=== PATIENT | female | born 1985 | race Caucasian/White ===

== ENCOUNTER → 2016-08-22 | Outpatient (REF) | payer BC, MEDICAID ==
[~2016-08-22] MED LIST: COLA100C PO; FLUO40CA57 PO; IBUP600T26 PO; MONT10TA2 PO; OXYC1TAB23 PO; PANT40TA2 PO; PRENTAB9 PO; SING10TA32 PO
== END ==
LOC: M LAB REF 17:34
PROVIDERS: ATTEND Obstetrics & Gynecology
DX: Z34.83 Encounter for supervision of other normal pregnancy, third trimester (principal)

== ENCOUNTER 2016-08-23 13:30 | Inpatient (IN) | payer BC, MEDICAID ==
[~2016-08-23] VITALS: Ht 154.9 cm; Wt 95.0 kg
[2016-08-23 13:58] VITALS: BP 137/86
[2016-08-23] MEDS ORDERED: LR 1,000 ML IV SCH (14:04)
[2016-08-23] MEDS ORDERED: LACTATED RINGER'S 1000 ML IV STA (14:04)
[2016-08-23] MEDS ORDERED: miSOPROStol 50 MCG 1/2 TAB (S0191) SL ONE (14:15)
[2016-08-23 14:35] VITALS: BP 134/82
[2016-08-23 14:54] LABS: MEAN CORPUSCULAR HEMOGLOBIN 31.3 pg (27.0-33.0); MEAN CORPUSCULAR HGB CONC 35.4 g/dl (32.0-36.5); MEAN CORPUSCULAR VOLUME 88.6 fl (80.0-96.0); RED CELL DISTRIBUTION WIDTH 12.5 % (11.5-14.5); WHITE BLOOD COUNT 7.6 K/mm3 (4.0-10.0)
[2016-08-23 15:53] VITALS: BP 138/89
[2016-08-23] MEDS ORDERED: PRENTAB9 PO (16:05)
[2016-08-23] MEDS ORDERED: SING10TA32 PO (16:05)
[2016-08-23] MEDS ORDERED: FLUO40CA57 PO (16:05)
[2016-08-23] MEDS ORDERED: MONT10TA2 PO (16:05)
[2016-08-23] MEDS ORDERED: PANT40TA2 PO (16:05)
[2016-08-23 17:06] VITALS: BP 131/69
[2016-08-23 18:06] VITALS: BP 159/94
[2016-08-23 18:08] VITALS: BP 150/87
[2016-08-23] MEDS ORDERED: FENTANYL 2MCG/ML ROPIVACAINE 0.2% NACL 250 ML CADD As Ordered ONE (19:33)
[2016-08-23] MEDS ORDERED: TERBUTALINE SULFATE 1 MG/ML VIAL (J3105) As Ordered ONE (20:30)
[2016-08-23] MEDS ORDERED: ceFAZolin 2 GM/D5W 50 ML IV BAG (J0690) As Ordered ONE (21:27)
[2016-08-23] MEDS ORDERED: BICITRA 30ML SOLN UDC As Ordered ONE (21:27)
[2016-08-23] MEDS ORDERED: MIDAZOLAM INJ 2 MG/2 ML VIAL (J2250) As Ordered ONE (21:50)
[2016-08-23] MEDS ORDERED: dexameTHASONE 4 MG/ML 1ML VIAL (J1100) As Ordered ONE (21:50)
[2016-08-23] MEDS ORDERED: ONDANSETRON 4MG/2ML VIAL (J2405) As Ordered ONE ×2 (21:51→22:28)
[2016-08-23] MEDS ORDERED: OXYTOCIN INJ 10 UNITS/ML VIAL (J2590) As Ordered ONE (21:51)
[2016-08-23] MEDS ORDERED: MORPHINE PRES-FREE INJ 10 MG/10 ML VIAL (J2274) As Ordered ONE (21:53)
[2016-08-23] MEDS ORDERED: PHENYLephrine HCL 500 MCG/5 ML (100MCG/ML) SYRINGE (J2370) As Ordered ONE ×2 (21:59→22:24)
[2016-08-23 22:06] LABS: CORD GAS O2 SAT V 35.7 %
[2016-08-23 22:07] LABS: CORD GAS HCO3 V 15.7 MEQ/L; CORD GAS PH V 6.932 UNITS
[2016-08-23 22:08] LABS: CORD GAS ABE V -18.2
[2016-08-23 22:09] LABS: CORD GAS SBC V 10.4 MEQ/L
[2016-08-23] MEDS ORDERED: METOCLOPRAMIDE INJ 10MG/2ML VIAL (J2765) IV PRN (22:10)
[2016-08-23] MEDS ORDERED: NALOXONE INJ 0.4 MG/1 ML VIAL (J2310) IV PRN ×2 (22:10)
[2016-08-23] MEDS ORDERED: ONDANSETRON 4MG/2ML VIAL (J2405) IV PRN ×3 (22:10→23:30)
[2016-08-23] MEDS ORDERED: NALBUPHINE HCL 10 MG/ML AMP (J2300) IV PRN ×2 (22:10→23:15)
[2016-08-23 22:12] LABS: CORD GAS PCO2 A 106.8 mmHg; CORD GAS PH A 6.854 UNITS
[2016-08-23 22:13] LABS: CORD GAS ABE A -17.9; CORD GAS HCO3 A 18.4 MEQ/L; CORD GAS O2 SAT A 19.5 %; CORD GAS PO2 A 17.8 mmHg; CORD GAS SBC A 10.2 MEQ/L; CORD GAS TCO2 A 21.7 MEQ/L
[2016-08-23] MEDS ORDERED: ePHEDrine SULFATE 25 MG/5 ML(5MG/ML) SYRINGE As Ordered ONE (22:27)
[2016-08-23] MEDS ORDERED: KETOROLAC 30 MG/ML VIAL (J1885) As Ordered ONE (23:10)
[2016-08-23] MEDS ORDERED: fentaNYL 100 MCG/2 ML INJECTION (J3010) IV PRN (23:15)
[2016-08-23] MEDS ORDERED: KETOROLAC 30 MG/ML VIAL (J1885) IV PRN (23:15)
[2016-08-23] MEDS: LR 1,000 ML IV SCH (23:16)
[2016-08-23] MEDS ORDERED: MEASLES,MUMPS,RUBELLA VACCINE INJ (MMR-II) (90707) SC SCH (23:30)
[2016-08-23] MEDS ORDERED: PROMETHAZINE 25 MG TAB PO PRN (23:30)
[2016-08-23] MEDS ORDERED: RHOGAM 300 MCG (1500 IU) INJ (J2790) IM SCH (23:30)
[2016-08-24] VITALS (8 sets, daily range): BP systolic 109–141; BP diastolic 57–86
[2016-08-24] MEDS ORDERED: CARBOPROST TROMETHAMINE 250 MCG/ML AMP IM ONE (00:45)
[2016-08-24] MEDS ORDERED: METHYLERGONOVINE MALEATE 0.2 MG/ML VIAL (J2210) IM ONE (00:45)
[2016-08-24] MEDS ORDERED: diphenhydrAMINE INJ 50MG/ML VIAL (J1200) As Ordered ONE (00:54)
[2016-08-24] MEDS ORDERED: diphenhydrAMINE INJ 50MG/ML VIAL (J1200) IV PRN (01:00)
[2016-08-24] MEDS ORDERED: TERBUTALINE SULFATE 1 MG/ML VIAL (J3105) SC ONE (01:00)
[2016-08-24] MEDS: PERCOCET 5MG/325MG TAB PO PRN ×2 (05:08→18:01)
[2016-08-24] MEDS ORDERED: BICITRA 30ML SOLN UDC PO SCH (06:00)
[2016-08-24] MEDS: LR 1,000 ML IV SCH (07:16)
[2016-08-24 07:21] LABS: MEAN CORPUSCULAR HEMOGLOBIN 30.9 pg (27.0-33.0); MEAN CORPUSCULAR HGB CONC 34.1 g/dl (32.0-36.5); MEAN CORPUSCULAR VOLUME 90.6 fl (80.0-96.0); RED CELL DISTRIBUTION WIDTH 12.4 % (11.5-14.5); WHITE BLOOD COUNT 12.7 K/mm3 (4.0-10.0)
[2016-08-24] MEDS ORDERED: OXYC1TAB23 PO (08:25)
[2016-08-24] MEDS ORDERED: IBUP600T26 PO (08:27)
[2016-08-24] MEDS ORDERED: COLA100C PO (08:28)
[2016-08-24] MEDS: FLUoxetine 20 MG CAP PO SCH (08:42)
[2016-08-24] MEDS: PANTOPRAZOLE 40MG TAB (PROTONIX) PO SCH (08:43)
[2016-08-24] MEDS: DOCUSATE SODIUM 100 MG CAP PO SCH ×2 (08:43→20:38)
[2016-08-24] MEDS: MONTELUKAST 10 MG TAB PO SCH (08:43)
[2016-08-24] MEDS: PRENATAL VITAMIN TAB PO SCH (08:43)
[2016-08-24] MEDS: IBUPROFEN 800 MG TAB PO SCH ×2 (08:44→15:49)
--- NOTE | 2016-08-24 09:50 | RO ---
DATE OF PROCEDURE: 08/23/2016 PREOPERATIVE DIAGNOSES: 1. 37 weeks 3 days gestation. 2. Cholestasis of . 3. Nonreassuring heart rate tracing. 4. Satisfied parity. POSTOPERATIVE DIAGNOSES: 1. 37 weeks 3 days gestation. 2. Cholestasis of . 3. Nonreassuring heart rate tracing. 4. Satisfied parity. 5. uterine atony. 6. Possible partial placental abruption PROCEDURE PERFORMED: Primary low transverse section and bilateral tubal ligation. SURGEON: Dr. Yahir Ybarra DO FURRIER APPRENTICE: Dr. Driss Bruner MD (requested to assist secondary to emergent situation) ANESTHESIA: Epidural with Duramorph. SPECIMENS SENT TO PATHOLOGY: 1. Placenta. 2. Bilateral fallopian tube segments. ESTIMATED BLOOD LOSS: 600 mL. FLUIDS REPLACED: 1500 mL lactated Ringer's. DRAINS: Sunshine catheter. URINE OUTPUT: 150 mL. COMPLICATIONS: Uterine atony. UTEROTONICS ADMINISTERED: IV Pitocin 35 units, Hemabate 0.25 mg IM times 1, Methergine 0.2 mg IM times 1. DATA: Apgars 2,7,8. Cord gases: arterial pH 6.85, BE -17.9, venous pH 6.93, BE-18.2. Birthweight: 6lbs 9oz, 2978g. Male. INTRAOPERATIVE FINDINGS: Uterine atony immediately after delivery; resolved with uterotonics. The placenta was densely adherent to the uterine wall, but was removed intact. Upon entry of the hysterotomy, a palm-sized blood clot was noted prior to delivery of the baby's head through the hysterotomy (possible partial placental abruption). Normal adnexa bilaterally. INDICATION: The patient is 30-year-old, (G) 3, now para (P) 3-0-0-3. She was admitted at 37 weeks and 3 days for an induction of labor secondary to a new diagnosis of cholestasis of . Her induction of labor was complicated by a nonreassuring heart rate tracing/Category II tracing. Given the persistence of the Category II tracing, the decision was made to proceed with a delivery. Given the patient's 100% satisfied parity, the patient expressed desire for tubal ligation at the time of delivery. PROCEDURE: The patient was counseled and consented on risks, benefits, indications, and alternatives of the procedure. Informed consent was obtained. She was taken to the operating room with an IV running and placed on the operating table in the dorsal supine position with a leftward tilt. Epidural anesthesia was placed earlier during the labor and was found to be adequate after it was bolused. The patient was prepared and draped in a normal sterile fashion. A time-out was performed per protocol. Epidural anesthesia was again found to be adequate. A Pfannenstiel incision was made with a 10 blade. The 10 blade was used to dissect down to the level of the rectus sheath fascia. The rectus sheath fascia was incised at the midline. The rectus sheath fascia was with manual stretch until there was good visualization of the midline between the rectus muscles. The peritoneum between the rectus muscles was identified and entered digitally. The digital opening was extended with manual stretch. There was good visualization of the lower uterine segment in the bladder. The bladder retractor was positioned. A low-transverse uterine incision was made. As soon as the hysterotomy was opened, a large blood clot was removed from the intrauterine. The head delivered through the hysterotomy with ease. The remainder of the body delivered with ease. The cord was doubly clamped and cut and the infant was immediately handed off to awaiting care of the intensive care unit (NICU); Dr. Arizmendi was present at delivery. Cord gases were obtained. Cord blood was obtained. The placenta was removed manually. It was noted to be densely adherent, but the entire placenta was able to be removed from the intrauterine cavity. A uterine sweep was performed with no evidence of any retained products of conception or clot and debris. The uterus was exteriorized and the hysterotomy was closed with #0 Vicryl in running locked fashion. This was reinforced with a second imbricating layer using #0 Monocryl. Excellent hemostasis of the hysterotomy was noted. Attention was turned to performing the tubal ligation. The left fallopian tube was grasped at the ampullary portion with a [place] and elevated. The underlying mesosalpinx was incised with the Bovie cautery and two ends of the fallopian tube were tied with #0 plain gut suture ([place] technique). The intervening segment was cut with Metzenbaum scissors. Excellent hemostasis of the remaining fallopian tube segments was noted. In similar fashion, the right fallopian tube was followed out to the fimbriated end, grasped with a Eleanor clamp at the ampullary portion and elevated. The underlying mesosalpinx was incised with Bovie cautery and a [place] tubal ligation was performed. The intervening segment was sent to pathology for permanent section. Excellent hemostasis of the remaining right fallopian tube was noted. The hysterotomy was reinspected and noted to be hemostatic. The adnexa were noted to be hemostatic. The posterior cul-de-sac was cleared of all clot and debris. The uterus was replaced back into the abdomen. The paracolic gutters were cleared of all clot and debris with damp laparotomy sponges. The hysterotomy was reinspected and noted be hemostatic. The peritoneum was closed with #3-0 Vicryl in running fashion. The rectus muscles were noted be hemostatic. The fascia was closed with #0 Vicryl in running fashion. The subcutaneous bleeders were cauterized. The subcutaneous tissue was copiously irrigated. The subcutaneous tissue was reapproximated with #3-0 Vicryl in running fashion. The skin was closed with #3-0 Monocryl in subcuticular fashion. A pressure bandage was placed over the closed incision. The patient tolerated the entire procedure well. She was transferred to the postanesthesia care unit (PACU) back in good and stable condition. MICKI
[2016-08-25] MEDS: IBUPROFEN 800 MG TAB PO SCH ×4 (00:04→23:48)
[2016-08-25] MEDS ORDERED: LR 1,000 ML IV SCH (01:15)
[2016-08-25] MEDS: PERCOCET 5MG/325MG TAB PO PRN ×3 (03:32→20:29)
[2016-08-25 05:10] VITALS: BP 131/72
[2016-08-25] MEDS: DOCUSATE SODIUM 100 MG CAP PO SCH ×2 (08:10→20:28)
[2016-08-25] MEDS: PRENATAL VITAMIN TAB PO SCH (08:10)
[2016-08-25] MEDS: FLUoxetine 20 MG CAP PO SCH (08:11)
[2016-08-25] MEDS: MONTELUKAST 10 MG TAB PO SCH (08:11)
[2016-08-25] MEDS: PANTOPRAZOLE 40MG TAB (PROTONIX) PO SCH (08:11)
[2016-08-25 14:11] VITALS: BP 140/67
[2016-08-25 18:29] VITALS: BP 155/89
[2016-08-25] MEDS: guaiFENesin ER 600 MG TAB PO SCH (20:28)
[2016-08-26] MEDS: PERCOCET 5MG/325MG TAB PO PRN ×3 (02:47→12:54)
[2016-08-26 06:18] VITALS: BP 138/79
[2016-08-26] MEDS: PRENATAL VITAMIN TAB PO SCH (08:09)
[2016-08-26] MEDS: FLUoxetine 20 MG CAP PO SCH (08:09)
[2016-08-26] MEDS: PANTOPRAZOLE 40MG TAB (PROTONIX) PO SCH (08:10)
[2016-08-26] MEDS: guaiFENesin ER 600 MG TAB PO SCH (08:10)
[2016-08-26] MEDS: IBUPROFEN 800 MG TAB PO SCH (08:10)
[2016-08-26] MEDS: DOCUSATE SODIUM 100 MG CAP PO SCH (08:10)
[2016-08-26] MEDS: MONTELUKAST 10 MG TAB PO SCH (08:10)
[2016-08-26] MEDS ORDERED: ALBUTEROL 90 MCG/ACT 8GM HFA INHALER INH PRN (11:15)
[2016-08-26] MEDS ORDERED: MOM 30ML SUSPENSION UDC PO PRN (11:15)
[2016-08-26] MEDS ORDERED: ALBU17IN2 INH (11:16)
[2016-08-26] MEDS ORDERED: BREAMIS24 XX (11:19)
[2016-08-26] MEDS ORDERED: PROT1TAB2 PO (12:34)
--- NOTE | 2016-08-28 07:04 | DSES ---
DATE OF ADMISSION: 08/23/2016 DATE OF DISCHARGE: 08/26/2016 30-year-old 3 now para 3, admitted for induction of labor on August 23, 2016 due to cholestasis of . Persistent category II tracing prompted primary section performed by Dr. Ybarra on August 23. was subsequently transferred to [facility] . Vital signs are stable 98, 138/79. CBC is 12.7. Hemoglobin 11.5 hematocrit 33.7, platelets 147. Adequate pain management. She is using the breast pump. She is in no apparent distress, harsh productive cough unchanged since admission. Sputum culture and sensitivity sent. Abdomen is soft, nontender tolerating regular diet. Fundus is firm. Wound is well approximated. Steri-Strips intact. No evidence of infection or dehiscence. Lochia: Rubra is scant without odor. She is voiding and passing flatus. No bowel movement (BM). ASSESSMENT: 1. Postoperative day three, status post primary section. 2. Probable bronchitis. PLAN: Milk of magnesia prior to discharge, albuterol MDI ordered. Routine care and precautions. Call with fever, nausea, vomiting, chills, foul lochia or wound discharge. Also noted increased bronchial symptoms and pelvic rest instructed. She is instructed to return to the office in two weeks and again in six weeks.
== END 2016-08-26 13:45 | disposition home or self-care (01) | DRG 540 ==
LOC: M LDI 13:30 → M OBS 23:42
PROVIDERS: ADMIT Obstetrics & Gynecology; ATTEND Obstetrics & Gynecology
PROC: 10D00Z1 Extraction of Products of Conception, Low, Open Approach (ICD-10-PCS; principal; 2016-08-23)
PROC: 0UB70ZZ Excision of Bilateral Fallopian Tubes, Open Approach (ICD-10-PCS; 2016-08-23)
DX: O26.62 Liver and biliary tract disorders in childbirth (principal); K83.1 Obstruction of bile duct; O76 Abnormality in fetal heart rate and rhythm complicating labor and delivery; O45.8X3 Other premature separation of placenta, third trimester; O72.1 Other immediate postpartum hemorrhage; Z37.0 Single live birth; Z3A.37 37 weeks gestation of pregnancy; Z30.2 Encounter for sterilization; J20.9 Acute bronchitis, unspecified; O99.53 Diseases of the respiratory system complicating the puerperium

== ENCOUNTER → 2017-09-12 | Outpatient (REF) | payer BC | LOC: M SFHCLERA 16:51 | DX: J02.9 Acute pharyngitis, unspecified (principal) ==

== ENCOUNTER → 2017-10-12 | Outpatient (CLI) | payer SELFPAY | LOC: M LRY 16:49 | DX: M79.644 Pain in right finger(s) (principal) ==

== ENCOUNTER → 2018-10-17 | Outpatient (CLI) | payer BC ==
[~2018-10-17] MED LIST changes: +ALBU17IN2 INH; -COLA100C PO; +COLA100C5 PO; +FLUO40CA PO; -FLUO40CA57 PO; +IBUP-1022 PO; -IBUP600T26 PO; -PANT40TA2 PO; +PANT40TA3 PO; +PROT1TAB2 PO; +[UNRECOGNIZED DRUG - CODE] XX
--- NOTE | 2018-10-17 15:32 | REP ---
Clinical: Cervicalgia and paresthesia. Technique: AP, lateral, flexion/extension, and open-mouth views of the cervical spine. Findings: Alignment and lordosis maintained. Vertebral bodies are intact and there is no evidence for acute fracture / compression injury or subluxation. Examination appears relatively age-appropriate and without significant degenerative changes noted prevertebral soft tissues are normal. Open mouth view demonstrates normal C1-C2 articulation and odontoid process. Impression: Normal cervical spine series. If the patient remains symptomatic consider MRI for further investigation. Electronically Signed by Julio César Lauren MD 10/17/2018 03:24 P
--- NOTE | 2018-10-17 15:34 | REP ---
Clinical: thoracic pain and paresthesia . Technique: AP, lateral, and swimmers views. Findings: Alignment and kyphosis is maintained. Vertebral bodies intact. No acute fracture / compression injury or subluxation. No degenerative changes. Paravertebral soft tissues are normal. Impression: Essentially normal age appropriate thoracic spine radiograph series. If the patient remains symptomatic consider the possibility of MRI for further investigation. Electronically Signed by Julio César Lauren MD 10/17/2018 03:26 P
--- NOTE | 2018-10-17 15:39 | REP ---
Clinical: Lower back pain and paresthesia . Technique: AP, lateral, bilateral oblique, and coned-down views. Findings: Alignment and lordosis is maintained. The vertebral bodies including transverse process and spinous processes are intact and normal. There is no evidence for acute fracture / compression injury or subluxation. No evidence for spondylolysis or spondylolisthesis. No significant degenerative change is noted. Impression: Age-appropriate lumbosacral spine radiograph series. If the patient remains symptomatic consider MRI for further investigation. Electronically Signed by Julio César Lauren MD 10/17/2018 03:31 P
== END ==
LOC: M LRY 14:25
PROVIDERS: ATTEND Nurse Practitioner Adult Health
DX: R20.2 Paresthesia of skin (principal); M54.2 Cervicalgia; M54.5 Low back pain

== ENCOUNTER → 2018-12-26 | Outpatient (REF) | payer BC | LOC: M SFHCLERA 13:29 | PROVIDERS: ATTEND Nurse Practitioner Family | DX: J02.9 Acute pharyngitis, unspecified (principal) ==

== ENCOUNTER → 2019-02-12 | Outpatient (REF) | payer BC | LOC: M SFHCLERA 17:58 | PROVIDERS: ATTEND Nurse Practitioner Family | DX: R30.0 Dysuria (principal) ==

== ENCOUNTER → 2019-08-04 | Outpatient (CLI) | payer BC ==
--- NOTE | 2019-08-04 13:31 | REP ---
Chest x-ray: Two views. History: Cough. Comparison chest x-ray: January 15, 2012. Findings: There is an ill-defined infiltrate in the left perihilar region consistent with pneumonia. This appears to be in the upper lobe distribution although it is difficult to see on the lateral radiograph. Pleural angles are sharp. No other infiltrate is seen. Heart is not enlarged. Impression: Left upper lobe infiltrate consistent with pneumonia. Electronically Signed by Jose Cruz MD 08/04/2019 01:23 P
== END ==
LOC: M LRY 13:01
PROVIDERS: ATTEND Physician Assistant
DX: R05 Cough (principal); R91.8 Other nonspecific abnormal finding of lung field

== ENCOUNTER → 2019-11-03 | Outpatient (CLI) | payer BC ==
[~2019-11-03] MED LIST changes: -MONT10TA2 PO; +MONT10TA4 PO
--- NOTE | 2019-11-03 18:00 | REP ---
CHEST, TWO VIEWS: There is no evidence of acute infiltrate. No pleural effusion is seen. The heart is normal in size. The mediastinal silhouette is unremarkable. The visualized osseous structures are intact. IMPRESSION: No acute pulmonary disease. Electronically Signed by Ken Vasquez MD 11/03/2019 06:29 P
== END ==
LOC: M LRY 17:31
PROVIDERS: ATTEND Nurse Practitioner Family
DX: R06.02 Shortness of breath (principal)

== ENCOUNTER → 2019-11-21 | Outpatient (CLI) | payer BC | LOC: M WUC 16:10 | PROVIDERS: ATTEND Allergy & Immunology Allergy | DX: J30.1 Allergic rhinitis due to pollen (principal) ==

== ENCOUNTER → 2020-01-20 | Outpatient (CLI) | payer BC | LOC: M PLALAB 14:48 | PROVIDERS: ATTEND Obstetrics & Gynecology | DX: Z12.4 Encounter for screening for malignant neoplasm of cervix (principal); Z13.79 Encounter for other screening for genetic and chromosomal anomalies | CPT/HCPCS: 36415; 87624; G0123 ==

== ENCOUNTER → 2022-03-14 | Outpatient (REF) | payer BC ==
[~2022-03-14] MED LIST changes: -MONT10TA4 PO; +MONT10TA97 PO; +PANT40TA29 PO; -PANT40TA3 PO
== END ==
LOC: M SFHCWAGY 17:06
PROVIDERS: ATTEND Obstetrics & Gynecology
DX: Z12.4 Encounter for screening for malignant neoplasm of cervix (principal); R87.610 Atypical squamous cells of undetermined significance on cytologic smear of cervix (ASC-US)
CPT/HCPCS: 87624; G0123

== ENCOUNTER → 2022-05-02 | Outpatient (CLI) | payer BC | LOC: M WUC 15:19 | PROVIDERS: ATTEND Nurse Practitioner Family | DX: E66.9 Obesity, unspecified (principal); F41.9 Anxiety disorder, unspecified; Z79.899 Other long term (current) drug therapy; Z53.9 Procedure and treatment not carried out, unspecified reason ==

== ENCOUNTER → 2022-05-02 | Outpatient (CLI) | payer BC ==
[2022-05-04 06:08] LABS: RUBEOLA IgG ANTIBODY >300.0 AU/mL (Immune >16.4)
== END ==
LOC: M WUC 15:35
PROVIDERS: ATTEND Nurse Practitioner Family
DX: Z11.59 Encounter for screening for other viral diseases (principal)

== ENCOUNTER → 2022-06-20 | Outpatient (REF) | payer BC | LOC: M SFHCWAGY 17:13 | PROVIDERS: ATTEND Obstetrics & Gynecology | DX: N87.0 Mild cervical dysplasia (principal) ==

== ENCOUNTER → 2023-05-02 | Outpatient (REF) | payer BC ==
[~2023-05-02] MED LIST changes: +MONT-5 PO; -SING10TA32 PO
== END ==
LOC: M PLALAB 15:14
PROVIDERS: ATTEND Obstetrics & Gynecology
DX: Z12.4 Encounter for screening for malignant neoplasm of cervix (principal)
CPT/HCPCS: 87624; G0123

== ENCOUNTER → 2024-02-15 | Outpatient (CLI) | payer BC | LOC: M WUC 15:38 | PROVIDERS: ATTEND Registered Nurse | DX: M25.531 Pain in right wrist (principal) ==

== ENCOUNTER → 2024-08-29 | Outpatient (CLI) | payer BC ==
[2024-08-29 14:36] LABS: BASO # 0.1 10^3/uL (0.0-0.2); BASO % 1.2 % (0.0-1.0); EOS # 0.1 10^3/uL (0.0-0.5); EOS % 1.9 % (0.0-3.0); HEMATOCRIT 38.9 % (36.0-47.0); HEMOGLOBIN 12.9 g/dl (12.0-15.5); LYMPH % 35.4 % (24.0-44.0); MEAN CORPUSCULAR HEMOGLOBIN 30.1 pg (27.0-33.0); MEAN CORPUSCULAR HGB CONC 33.2 g/dl (32.0-36.5); MEAN CORPUSCULAR VOLUME 90.7 fl (80.0-96.0); MONO # 0.6 10^3/uL (0.0-0.8); MONO % 9.5 % (2.0-8.0); NEUTROPHILS % 51.8 % (36.0-66.0); PLATELET COUNT, AUTOMATED 247 10^3/uL (150-450); RED BLOOD COUNT 4.29 10^6/uL (4.00-5.40); WHITE BLOOD COUNT 5.8 10^3/uL (4.0-10.0)
[2024-08-29 14:42] LABS: ERYTHROCYTE SEDIMENTATION RATE 10 mm/hr (0-20)
[2024-08-29 14:56] LABS: URIC ACID 2.9 MG/DL (3.1-7.8)
[2024-08-29 14:58] LABS: C REACTIVE PROTEIN QUANTITATIV < 0.50 MG/DL (<1.0)
[2024-08-29 14:59] LABS: ALBUMIN 4.1 G/DL (3.2-5.2); ALKALINE PHOSPHATASE 87 U/L (35-104); ALT/SGPT 47 U/L (7.0-40); AST/SGOT 27 U/L (<34); BILIRUBIN,TOTAL 0.4 MG/DL (0.3-1.2); BLOOD UREA NITROGEN 21 MG/DL (9-23); CALCIUM LEVEL 8.9 MG/DL (8.5-10.1); CARBON DIOXIDE LEVEL 31 MMOL/L (20-31); CHLORIDE LEVEL 105 MMOL/L (98-107); CHOLESTEROL LEVEL 192 MG/DL (<200); CHOLESTEROL RISK RATIO 3.56 (<5); CREATININE FOR GFR 0.69 MG/DL (0.55-1.30); GLOMERULAR FILTRATION RATE > 60.0 (>58); GLUCOSE, FASTING 77 MG/DL (60-100); HDL CHOLESTEROL 53.9 MG/DL (>40); LDL CHOLESTEROL 113.7 MG/DL (<100); NON-HDL-C 138.1 MG/DL; POTASSIUM SERUM 4.3 MMOL/L (3.5-5.1); SODIUM LEVEL 137 MMOL/L (136-145); TOTAL PROTEIN 7.2 G/DL (5.7-8.2); TRIGLYCERIDES LEVEL 122 MG/DL (<150)
[2024-08-29 15:00] LABS: FREE T4 1.15 NG/DL (0.89-1.76)
[2024-09-01 13:14] LABS: SSA SJOGRENS A <1.0 NEG AI (<1.0 NEG); SSB SJOGRENS B <1.0 NEG AI (<1.0 NEG)
[2024-09-02 00:58] LABS: CYCLIC CITRULLINATED PEPTIDE < 16 UNITS (<20)
[2024-09-02 11:03] LABS: ANA PATTERN Cytoplasmic (NEGATIVE); ANA SCREEN, IFA POSITIVE (NEGATIVE); ANA TITER 1:40 titer (<1:40)
[2024-09-02 17:32] LABS: HLA-B27 Negative (Negative)
== END ==
LOC: M PLALAB 11:19
PROVIDERS: ATTEND Registered Nurse
DX: M13.0 Polyarthritis, unspecified (principal); E78.00 Pure hypercholesterolemia, unspecified; Z79.899 Other long term (current) drug therapy

== ENCOUNTER → 2024-10-22 | Outpatient (CLI) | payer BC ==
[~2024-10-22] MED LIST changes: +ISOVUE-300 61% 100ML VIAL As Ordered ONE; +LIDOCAINE 1% MDV 20ML VIAL As Ordered ONE; +PROHANCE 279.3MG/ML 5ML VIAL As Ordered ONE
== END ==
LOC: M RAD 07:01
PROVIDERS: ATTEND Orthopaedic Surgery Hand Surgery
DX: M25.531 Pain in right wrist (principal); M25.631 Stiffness of right wrist, not elsewhere classified; S63.511A Sprain of carpal joint of right wrist, initial encounter; Y92.9 Unspecified place or not applicable; Y93.9 Activity, unspecified; Y99.9 Unspecified external cause status; X58.XXXA Exposure to other specified factors, initial encounter
CPT/HCPCS: 25246; 73223; 77002; A9576; Q9967

== ENCOUNTER 2024-12-10 11:01 | Day surgery (SDC) | payer BC ==
[~2024-12-10] VITALS: Ht 152.4 cm; Wt 88.0 kg
[~2024-12-10 11:01] MED LIST changes: +CETI10CA13 PO; +CITA20TA6 PO; +GLUC500C37 PO; -ISOVUE-300 61% 100ML VIAL As Ordered ONE; -LIDOCAINE 1% MDV 20ML VIAL As Ordered ONE; +NAPR-885 PO; +OMEP-173 PO; -PROHANCE 279.3MG/ML 5ML VIAL As Ordered ONE; +THERTAB52 PO; +VITA100065 PO
[2024-12-10] MEDS ORDERED: ACETAMINOPHEN 1000MG/100ML IV BAG As Ordered ONE (11:57)
[2024-12-10] MEDS ORDERED: propofoL 200 MG/20 ML VIAL As Ordered ONE (11:58)
[2024-12-10] MEDS ORDERED: ONDANSETRON 4MG 2ML VIAL As Ordered ONE (11:58)
[2024-12-10] MEDS ORDERED: KETOROLAC 30 MG/ML 1ML VIAL As Ordered ONE (11:58)
[2024-12-10] MEDS ORDERED: LIDOCAINE 2% 100MG/5ML SDV (FOR ANES.) As Ordered ONE (11:58)
[2024-12-10] MEDS ORDERED: fentaNYL 100 MCG/2 ML INJECTION As Ordered ONE (11:59)
[2024-12-10] MEDS ORDERED: MIDAZOLAM INJ 2MG/2ML VIAL As Ordered ONE (11:59)
[2024-12-10] MEDS ORDERED: LR 1,000 ML IV SCH (12:10)
[2024-12-10] MEDS: ceFAZolin SOD 2 GM IV ONCE IV ONE (12:38)
[2024-12-10] MEDS ORDERED: METOCLOPRAMIDE INJ 10MG/2ML VIAL As Ordered ONE (12:59)
[2024-12-10] MEDS: POLYSPORIN TOPICAL OINTMENT 15GM As Ordered ONE (14:07)
[2024-12-10] MEDS ORDERED: fentaNYL 100 MCG/2 ML INJECTION IV PRN (14:15)
[2024-12-10] MEDS ORDERED: PERCOCET PO (14:23)
[2024-12-10] MEDS: ONDANSETRON 4MG 2ML VIAL IV PRN (14:29)
[2024-12-10] MEDS: oxyCODONE 5MG TAB PO PRN (14:30)
[2024-12-10 15:36] VITALS: BP 121/68; TEMP 97.8; O2SAT 98
== END 2024-12-10 15:44 | disposition home or self-care (01) ==
LOC: M SDC 11:01
PROVIDERS: ATTEND Orthopaedic Surgery Hand Surgery
DX: M25.531 Pain in right wrist (principal); S63.511A Sprain of carpal joint of right wrist, initial encounter; K21.9 Gastro-esophageal reflux disease without esophagitis; G47.33 Obstructive sleep apnea (adult) (pediatric); Z79.899 Other long term (current) drug therapy; Z88.8 Allergy status to other drugs, medicaments and biological substances
CPT/HCPCS: 29844; 81025; J0131; J0665; J0690; J1100; J1885; J2250; J2405; J2765; J3010

== ENCOUNTER → 2025-04-17 | Outpatient (REF) | payer BC ==
[~2025-04-17] MED LIST changes: -IBUP-1022 PO; +IBUP600T42 PO; +PERCOCET PO
[2025-04-17 17:39] LABS: APPEARANCE, URINE CLEAR (CLEAR); BACTERIA, URINE AUTO NEGATIVE (NEGATIVE); BILIRUBIN, URINE AUTO NEGATIVE (NEGATIVE); BLOOD, URINE BLOOD NEGATIVE (NEGATIVE); GLUCOSE, URINE (UA) AUTO NEGATIVE (NEGATIVE); KETONE, URINE AUTO NEGATIVE (NEGATIVE); LEUKOCYTE ESTERASE, URINE AUTO NEGATIVE (NEGATIVE); NITRITE, URINE AUTO NEGATIVE (NEGATIVE); PROTEIN, URINE AUTO NEGATIVE (NEGATIVE); RBC, URINE AUTO 0 /HPF (0-3); SPECIFIC GRAVITY URINE AUTO 1.006 (1.002-1.035); SQUAMOUS EPITHELIAL CELL UR AU 1 /HPF (0-6); UROBILINOGEN, URINE AUTO 0.2 mg/dL (0.0-2.0); WBC, URINE AUTO 0 /HPF (0-3)
[2025-04-17 18:03] LABS: BASO # 0.1 10^3/uL (0.0-0.2); BASO % 1.3 % (0.0-1.0); EOS # 0.1 10^3/uL (0.0-0.5); EOS % 2.3 % (0.0-3.0); LYMPH # 1.9 10^3/uL (1.5-5.0); LYMPH % 31.9 % (24.0-44.0); MONO # 0.5 10^3/uL (0.0-0.8); MONO % 7.5 % (2.0-8.0); NEUTROPHILS # 3.4 10^3/uL (1.5-8.5); NEUTROPHILS % 56.7 % (36.0-66.0); PLATELET COUNT, AUTOMATED 272 10^3/uL (150-450)
[2025-04-17 18:04] LABS: ALT/SGPT 51 U/L (7.0-40); AST/SGOT 31 U/L (<34); CALCIUM LEVEL 9.6 MG/DL (8.5-10.1); CARBON DIOXIDE LEVEL 31 MMOL/L (20-31); CHLORIDE LEVEL 105 MMOL/L (98-107); CREATININE FOR GFR 0.68 MG/DL (0.55-1.30); GLOMERULAR FILTRATION RATE > 90.0 (>58); POTASSIUM SERUM 3.7 MMOL/L (3.5-5.1); SODIUM LEVEL 144 MMOL/L (136-145)
[2025-04-17 18:05] LABS: C REACTIVE PROTEIN QUANTITATIV < 0.50 MG/DL (<1.0)
[2025-04-17 18:15] LABS: ERYTHROCYTE SEDIMENTATION RATE 12 mm/hr (0-20)
[2025-04-17 18:25] LABS: COMPLEMENT C4 24.5 MG/DL (12-36)
[2025-04-17 18:34] LABS: TOTAL PROTEIN,RANDOM URINE < 6.0 MG/DL (0.0-14.0)
[2025-04-21 14:02] LABS: COMPLEMENT TOTAL (CH50) > 60 U/mL (31-60)
== END ==
LOC: M SFHCRHEU 14:12
PROVIDERS: ATTEND Internal Medicine Rheumatology
DX: R76.8 Other specified abnormal immunological findings in serum (principal); M65.931 Unspecified synovitis and tenosynovitis, right forearm; H04.123 Dry eye syndrome of bilateral lacrimal glands

== ENCOUNTER → 2025-04-17 | Outpatient (CLI) | payer BC | LOC: M WUC 14:42 | PROVIDERS: ATTEND Internal Medicine Rheumatology | DX: R76.8 Other specified abnormal immunological findings in serum (principal); M65.931 Unspecified synovitis and tenosynovitis, right forearm; H04.123 Dry eye syndrome of bilateral lacrimal glands ==

== ENCOUNTER → 2025-05-04 | Outpatient (CLI) | payer BC | LOC: M WHC 10:47 | PROVIDERS: ATTEND Registered Nurse | DX: Z12.31 Encounter for screening mammogram for malignant neoplasm of breast (principal); R92.323 Mammographic fibroglandular density, bilateral breasts ==